=== PATIENT | male | born 1965 | race Two or more races ===

== ENCOUNTER 2018-05-05 21:24 | Emergency (ER) | payer MEDICAID, SELFPAY ==
[~2018-05-05] VITALS: Ht 170.2 cm; Wt 84.0 kg
[2018-05-05 22:15] VITALS: BP 133/84
== END 2018-05-06 02:54 | disposition left against medical advice (07) ==
LOC: ER 21:24
DX: Z53.21 Procedure and treatment not carried out due to patient leaving prior to being seen by health care provider (principal)

== ENCOUNTER 2020-03-13 00:25 | Emergency (ER) | payer MEDICAID ==
[~2020-03-13] VITALS: Ht 167.6 cm; Wt 78.0 kg
[2020-03-13 00:51] VITALS: BP 198/89
== END 2020-03-13 02:36 | disposition home or self-care (01) ==
LOC: ER 00:51
DX: F12.988 Cannabis use, unspecified with other cannabis-induced disorder (principal); R03.0 Elevated blood-pressure reading, without diagnosis of hypertension
CPT/HCPCS: 99283